=== PATIENT | male | born 1965 | race Two or more races ===

== ENCOUNTER 2025-01-05 06:44 | Emergency (ER) | payer OTHER ==
[~2025-01-05] VITALS: Ht 170.2 cm; Wt 68.9 kg
[2025-01-05] MEDS ORDERED: METHYLPREDNISOLONE SOD SUCC 125 MG VIAL ONE (07:09)
[2025-01-05] MEDS ORDERED: 0.9 % SODIUM CHLORIDE 1,000 ML IV STA (07:12)
[2025-01-05] MEDS ORDERED: METHYLPREDNISOLONE SOD SUCC 125 MG VIAL IV STA (07:13)
[2025-01-05] MEDS ORDERED: cloNIDine HCL 0.3 MG TABLET PO STA (07:15)
[2025-01-05] MEDS ORDERED: CLONIDINE HCL 0.1 MG TABLET PO ONE (07:24)
[2025-01-05] MEDS ORDERED: LEVALBUTEROL HCL 1.25 MG/3 ML SOLUTION IH SCH (07:30)
[2025-01-05 07:44] LABS: HEMATOCRIT 44.8 % (39.0-48.0); HEMOGLOBIN 15.4 g/dL (13-16.00); MEAN CORPUSCULAR HEMOGLOBIN 31.6 pg (27.00-32.0); MEAN CORPUSCULAR HGB CONC 34.4 g/dl (32.0-36.0); PLATELET COUNT 226 K/uL (150-450); RED BLOOD COUNT 4.87 M/uL (4.00-6.00); RED CELL DISTRIBUTION WIDTH 14.4 % (11.5-14.5)
[2025-01-05] MEDS ORDERED: LEVALBUTEROL HCL 1.25 MG/3 ML SOLUTION IH ONE (07:49)
[2025-01-05 07:54] LABS: ABG PH 7.337 (7.35-7.45); ABG PO2 98.5 mmHg (80-100); ABG pCO2 46.1 mmHg (35-45); BICARBONATE 24.1 mmol/l (23-25); Tco2 25.5 mmol/l
[2025-01-05 08:08] LABS: ALBUMIN 3.9 gm/dL (3.4-5.0); BILIRUBIN TOTAL 0.46 mg/dL (0.3-1.2); CALCIUM 9.7 mg/dL (8.5-10.1); CREATININE SERUM 1.33 mg/dL (0.70-1.30); GFR 55.03; GLOBULINA 3.4 G/DL (2.4-3.5); POTASSIUM 4.51 mEq/L (3.5-5.1); TOTAL PROTEIN 7.3 gm/dL (6.4-8.2)
[2025-01-05 09:21] LABS: allen test SATISFACTORY; o2 28 %; puncture site RADIAL LEFT
[2025-01-05] MEDS ORDERED: NIFEDIPINE 10 MG CAPSULE PO STA (10:44)
== END 2025-01-05 12:25 | disposition home or self-care (01) ==
LOC: ER 06:47
DX: J45.998 Other asthma (principal); T55.1X1A Toxic effect of detergents, accidental (unintentional), initial encounter; Y92.89 Other specified places as the place of occurrence of the external cause; I10 Essential (primary) hypertension; Z91.013 Allergy to seafood

== ENCOUNTER 2025-02-08 07:22 | Emergency (ER) | payer OTHER ==
[~2025-02-08] VITALS: Ht 167.6 cm; Wt 71.2 kg
[2025-02-08] MEDS ORDERED: ACETAMINOPHEN 500 MG GEL..CAP PO ONE ×2 (09:30→09:32)
[2025-02-08] MEDS ORDERED: LABETALOL HCL 20MG/4ML SYRINGE IV ONE (09:30)
[2025-02-08] MEDS ORDERED: LABETALOL HCL 100 MG/20 ML ML ONE (09:33)
[2025-02-08 10:23] LABS: HEMATOCRIT 46.8 % (39.0-48.0); MEAN CORPUSCULAR HEMOGLOBIN 31.4 pg (27.00-32.0); MEAN CORPUSCULAR HGB CONC 34.1 g/dl (32.0-36.0); PLATELET COUNT 201 K/uL (150-450); RED BLOOD COUNT 5.08 M/uL (4.00-6.00); RED CELL DISTRIBUTION WIDTH 15.1 % (11.5-14.5)
[2025-02-08 10:40] LABS: CALCIUM 9.3 mg/dL (8.5-10.1); CREATININE SERUM 1.18 mg/dL (0.70-1.30); GFR 63.18; POTASSIUM 4.32 mEq/L (3.5-5.1)
[2025-02-08 11:23] LABS: COVID-19 AG NEGATIVE (NEGATIVE); INFLUENZA A AG NEGATIVE (NEGATIVE)
[2025-02-08] MEDS ORDERED: CHLORASEPTIC M1 EAC1 MM (11:41)
[2025-02-08] MEDS ORDERED: BENZONATATE150 MG PO (11:41)
[2025-02-08] MEDS ORDERED: AMOX1TAB5 PO (11:41)
== END 2025-02-08 12:06 | disposition home or self-care (01) ==
LOC: ER 07:23
PROVIDERS: General Practice
DX: J06.9 Acute upper respiratory infection, unspecified (principal); Z91.013 Allergy to seafood; I10 Essential (primary) hypertension; Z20.822 Contact with and (suspected) exposure to COVID-19
CPT/HCPCS: 36415; 71046; 96365; 99283; J3490